=== PATIENT | male | born 1975 ===

== ENCOUNTER 2018-01-05 17:46 | Emergency (ER) | payer OTHER ==
[~2018-01-05] VITALS: Ht 162.6 cm; Wt 75.0 kg
[2018-01-05 17:52] VITALS: TEMP 37.3; Ht 162.6 cm; Wt 75.0 kg
[2018-01-05] MEDS ORDERED: SODIUM CHLORIDE 0.9% 1000ML 1,000 ML IV STA ×2 (18:11→20:33)
[2018-01-05] MEDS ORDERED: DIPHTHERIA/TETANUS/PERTUSSIS 0.5 ML SYR/VIAL IM. ONE ×2 (18:15→21:45)
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
[2018-01-05] MEDS ORDERED: OPTIRAY 320 IV PRN (18:45)
[2018-01-05 18:56] LABS: BASO % 0.3 %; BASO ABS # 0.08 K/uL (0-0.2); EOS % 1.2 %; EOS ABS # 0.28 K/uL (0-0.5); IG# 0.25 K/uL (0.00-0.02); LYMPH % 6.2 %; LYMPH ABS # 1.46 K/uL (1.2-3.4); MEAN CELL VOLUME 91.6 fL (80-100); MEAN CORPUSCULAR HEMOGLOBIN 31.9 pg (25-34); MEAN CORPUSCULAR HGB CONC 34.8 g/dl (32-36); MEAN PLATELET VOLUME 13.3 fL (7.4-10.4); MONO % 10.1 %; MONO ABS # 2.39 K/uL (0.11-0.59); NEUT % 81.1 %; NEUT ABS # 19.12 K/uL (1.4-6.5); PLATELET COUNT 173 K/uL (130-400); RED CELL DISTRIBUTION WIDTH SD 43.3 fL (36.4-46.3); WHITE BLOOD COUNT 23.58 K/uL (4.8-10.8)
[2018-01-05 19:01] LABS: ISTAT CREATININE 0.7 mg/dl (0.6-1.3); ISTAT IONIZED CALCIUM 1.15 mmol/l (1.12-1.32); ISTAT POTASSIUM 3.3 mEq/L (3.3-5.0)
[2018-01-05] MEDS ORDERED: ONDANSETRON INJ 2 MG/ML 2 ML VIAL IV STA (19:12)
[2018-01-05] MEDS ORDERED: MoRPHine SULFATE 4 MG/ML 1 ML CARP\\VIAL IV STA (19:12)
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
[2018-01-05 19:13] LABS: CREATININE 0.87 mg/dl (0.60-1.40); INR 0.9 (0.9-1.1); POTASSIUM 3.4 mmol/L (3.5-5.1); PTT PATIENT 21.2 SECONDS (21.0-31.0)
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
[2018-01-05] MEDS ORDERED: LIDOCAINE/EPINEPHRINE 1% 20 ML VIAL INFIL ONE (21:00)
[2018-01-05 21:03] LABS: HEMATOCRIT 43.2 % (42-52); HEMOGLOBIN 14.9 g/dL (14.0-18.0); MEAN CELL VOLUME 92.5 fL (80-100); MEAN CORPUSCULAR HEMOGLOBIN 31.9 pg (25-34); MEAN CORPUSCULAR HGB CONC 34.5 g/dl (32-36); MEAN PLATELET VOLUME 12.9 fL (7.4-10.4); PLATELET COUNT 180 K/uL (130-400); RED CELL DISTRIBUTION WIDTH CV 13.1 % (11.5-14.5); RED CELL DISTRIBUTION WIDTH SD 43.9 fL (36.4-46.3); WHITE BLOOD COUNT 23.07 K/uL (4.8-10.8)
[2018-01-05 21:55] VITALS: BP 155/110; PULSE 98; O2SAT 100
[2018-01-05 22:24] LABS: BASO % 0.2 %; BASO ABS # 0.04 K/uL (0-0.2); EOS % 0.9 %; IG# 0.23 K/uL (0.00-0.02); LYMPH % 9.1 %; MONO % 10.3 %; MONO ABS # 2.38 K/uL (0.11-0.59); NEUT % 78.5 %; NEUT ABS # 18.12 K/uL (1.4-6.5)
== END 2018-01-05 22:07 | disposition home or self-care (01) ==
LOC: EDBD 17:46 → C.EDA 17:48
DX: S61.412A Laceration without foreign body of left hand, initial encounter (principal); V87.7XXA Person injured in collision between other specified motor vehicles (traffic), initial encounter; Z87.891 Personal history of nicotine dependence